=== PATIENT | female | born 1985 | race Caucasian/White ===

== ENCOUNTER 2020-05-07 10:36 | Outpatient (REF) | payer OTHER, SELFPAY ==
[2020-05-07 11:14] LABS: COVID-19 Test Negative (Negative)
== END 2020-05-07 10:37 | disposition home or self-care (01) ==
LOC: HO.LAB 10:36
PROVIDERS: Visit Provider Internal Medicine
DX: Z20.828 Contact with and (suspected) exposure to other viral communicable diseases (principal)
CPT/HCPCS: 87635

== ENCOUNTER 2020-05-09 10:52 | Outpatient (REF) | payer OTHER, SELFPAY ==
[2020-05-09 11:12] LABS: COVID-19 Test Negative (Negative)
== END 2020-05-09 10:53 | disposition home or self-care (01) ==
LOC: HO.LAB 10:52
PROVIDERS: Visit Provider Internal Medicine
DX: Z20.828 Contact with and (suspected) exposure to other viral communicable diseases (principal)
CPT/HCPCS: 87635

== ENCOUNTER 2021-07-14 13:59 | Outpatient (REF) | payer BC, SELFPAY ==
[2021-07-14 15:16] LABS: Influenza A PCR NEGATIVE (Negative); Influenza B PCR NEGATIVE (Negative); Resp Syncy Virus RNA Qual PCR NEGATIVE (Negative); SARS COV2 PCR INHOUSE NEGATIVE (Negative)
== END 2021-07-14 14:00 | disposition home or self-care (01) ==
LOC: HO.LNP 13:59
PROVIDERS: Visit Provider Family Medicine
DX: Z20.822 Contact with and (suspected) exposure to COVID-19 (principal)
CPT/HCPCS: 0241U